=== PATIENT | male | born 1985 | race Caucasian/White ===

== ENCOUNTER 2017-01-21 20:38 | Emergency (ER) | payer OTHER ==
[~2017-01-21] VITALS: Ht 188 cm; Wt 86.2 kg
[2017-01-21 20:38] VITALS: BP 140/79
--- NOTE | 2017-01-21 21:15 | NUR ---
CALLED PT IN [place], NO REPONSE
[2017-01-21] MEDS ORDERED: SILVER SULFADIAZINE CREAM 25 GM TUBE ONE (23:11)
[2017-01-21] MEDS ORDERED: SILVER SULFADIAZINE CREAM 25 GM TUBE TP ONE (23:30)
== END 2017-01-21 23:27 | disposition home or self-care (01) ==
LOC: ER 20:38
DX: T22.111A Burn of first degree of right forearm, initial encounter (principal); T23.112A Burn of first degree of left thumb (nail), initial encounter; V43.92XA Unspecified car occupant injured in collision with other type car in traffic accident, initial encounter; Y93.89 Activity, other specified; Y92.89 Other specified places as the place of occurrence of the external cause; Y99.9 Unspecified external cause status
CPT/HCPCS: 16000; 99284; A4606; Z7610

== ENCOUNTER 2019-04-04 00:22 | Emergency (ER) | payer OTHER ==
[~2019-04-04] VITALS: Ht 188 cm; Wt 90.7 kg
[2019-04-04 01:03] VITALS: BP 127/76
[2019-04-04] MEDS ORDERED: CEFTRIAXONE 1 G VIAL ONE (02:12)
[2019-04-04] MEDS ORDERED: LIDOCAINE /MPF 1% VIAL 5 ML VIAL ONE (02:13)
[2019-04-04] MEDS ORDERED: CEFTRIAXONE 1 G VIAL IM ONE (02:30)
== END 2019-04-04 02:31 | disposition home or self-care (01) ==
LOC: ER 00:36
DX: L03.031 Cellulitis of right toe (principal); Z98.890 Other specified postprocedural states
CPT/HCPCS: 96372; 99283; J0696; J3490